=== PATIENT | female | born 1975 | race Caucasian/White ===

== ENCOUNTER 2023-09-07 20:36 | Emergency (ER) | payer MEDICAID ==
[~2023-09-07] VITALS: Ht 162.6 cm; Wt 79.0 kg
[2023-09-07 21:01] VITALS: TEMP 97.9; O2SAT 97
[2023-09-07] MEDS ORDERED: KETOROLAC 60MG/2ML VIAL IM ONE (23:15)
[2023-09-08 01:49] VITALS: BP 149/86; PULSE 93; RESP 14
== END 2023-09-08 02:04 | disposition home or self-care (01) ==
LOC: ER 20:36
DX: M79.10 Myalgia, unspecified site (principal); M79.601 Pain in right arm; R78.9 Finding of unspecified substance, not normally found in blood; M25.511 Pain in right shoulder; V49.49XA Driver injured in collision with other motor vehicles in traffic accident, initial encounter; Y93.89 Activity, other specified; Y92.89 Other specified places as the place of occurrence of the external cause; Y99.8 Other external cause status
CPT/HCPCS: 99284; 71046; 73030; 73060; 73070; 96372; J1885